=== PATIENT | male | born 1940 | race Caucasian/White ===

== ENCOUNTER 2018-04-04 09:57 | Day surgery (SDC) | payer OTHER ==
[2018-04-04] MEDS ORDERED: fentaNYL* 50 MCG/ML 2 ML VIAL (100 MCG VIAL) ONE (11:24)
[2018-04-04] MEDS ORDERED: Midazolam* 1 MG/ML 2 ML VIAL (2 MG) ONE (11:24)
[2018-04-04 13:19] VITALS: BP 120/82
[2018-04-04] MEDS ORDERED: Phenylephr/Ketorolac 1%/0.3% OPH DROP BTL ONE (14:11)
--- NOTE | 2018-04-04 14:29 | OP ---
DATE OF OPERATION/DATE OF DICTATION: 04/04/2018 - [facility] DATE OF : 1940. SURGEON: Dr. Parish Chino. PLANER SETUP OPERATOR: None. ANESTHESIA: Topical with intravenous sedation. PRE-OP DIAGNOSIS: Cataract, left eye. POST-OP DIAGNOSIS: Cataract, left eye. OPERATIVE PROCEDURE: Phacoemulsification and cataract extraction with posterior chamber intraocular lens implant, left eye. COMPLICATIONS: None. BLOOD LOSS: None. DESCRIPTION OF PROCEDURE: The patient was brought to the operating room and received a small amount of intravenous sedation. A drop of Tetracaine was placed in his left eye. He was prepped and draped in the usual sterile fashion for ophthalmic surgery and attention was directed to the left eye where a speculum was placed. A paracentesis was created at the 5 o'clock position and 0.1 cc of 1 percent preservative-free Lidocaine was injected into the anterior chamber followed by DisCoVisc. The eye was digitally stabilized while a 2.75 mm keratome was used to create a triplanar clear corneal incision at the 3 o' clock position. A continuous curvilinear capsulorrhexis was created with a cystotome and Utrata forceps. BSS on a cannula was used to hydrodissect the lens from the capsule. Phacoemulsification was performed in a divide-and- conquer technique to create four fragments which were removed. Residual cortical material was removed with irrigation and aspiration. DisCoVisc was used to inflate the capsular bag and an AUOOTO 21.0 diopter lens was folded and inserted into the capsular bag. DisCoVisc was removed using irrigation and aspiration. BSS on a cannula was used to hydrate the corneal stroma and seal the wound. At the end of the case the pupil was round and the lens was centered. The eye was of normal pressure and the wound was water tight. The speculum was removed and topical Maxitrol ointment was placed on the surface of the eye. The eye was closed, patched and shielded and the patient was sent to the recovery room in stable condition with post operative instructions and follow-up appointment given. [id number] #: [id number] MTDD
== END 2018-04-04 13:10 | disposition home or self-care (01) ==
LOC: OREAST 09:57
PROVIDERS: ATTEND Ophthalmology
DX: H25.12 Age-related nuclear cataract, left eye (principal); I25.10 Atherosclerotic heart disease of native coronary artery without angina pectoris; I25.2 Old myocardial infarction; Z86.718 Personal history of other venous thrombosis and embolism; Z79.01 Long term (current) use of anticoagulants; E03.9 Hypothyroidism, unspecified; F41.8 Other specified anxiety disorders; J44.9 Chronic obstructive pulmonary disease, unspecified; Z99.81 Dependence on supplemental oxygen
CPT/HCPCS: C9447; J2250; J3010; V2632

== ENCOUNTER 2018-04-11 09:21 | Day surgery (SDC) | payer OTHER ==
[~2018-04-11 09:21] MED LIST: Acetaminophen TAB* 325 MG PO PRN; Buffered Lidocaine 0.9% SYRIN* 5 ML/SYR SYRINGE INTRADERM ONE
[2018-04-11] MEDS ORDERED: Midazolam* 1 MG/ML 2 ML VIAL (2 MG) ONE (10:12)
[2018-04-11] MEDS ORDERED: Propofol* 10 MG/ML 20 ML BTL IV PUSH ONE (10:31)
[2018-04-11] MEDS ORDERED: Lidocaine 2% PF * 5 ML VIAL ONE (10:31)
[2018-04-11 11:01] VITALS: BP 103/74
[2018-04-11] MEDS ORDERED: Tetracaine 0.5% OPTH.SOL 4 ML* 1 DROP BTL ONE (13:47)
[2018-04-11] MEDS ORDERED: Ketorolac 0.5% OPHTH (NF) 0.5 % 5 ML BTL ONE (13:47)
[2018-04-11] MEDS ORDERED: Neomycin/Polymy/Dex OPHTH.OIN* 3.5 GM ONE (13:47)
[2018-04-11] MEDS ORDERED: Cyclopentolate 1% OPTH.SOL* 2 ML BTL ONE (13:47)
[2018-04-11] MEDS ORDERED: Tropicamide 1% OPTH.SOL* BTL ONE (13:47)
[2018-04-11] MEDS ORDERED: Phenylephrine 2.5% OPTH.SOL* 2 ML BTL ONE (13:47)
[2018-04-11] MEDS ORDERED: Phenylephr/Ketorolac 1%/0.3% OPH DROP BTL ONE (13:47)
[2018-04-11] MEDS ORDERED: Lidocaine 1%* 5 ML VIAL ONE (13:47)
--- NOTE | 2018-04-12 03:24 | OP ---
DATE OF OPERATION: 04/11/18 [facility] DATE OF : 44 SURGEON: Dr. Parish Chino. FAMILY SERVICES WORKER: None. ANESTHESIA: Topical with intravenous sedation. PRE-OP DIAGNOSIS: Cataract, right eye. POST-OP DIAGNOSIS: Cataract, right eye. OPERATIVE PROCEDURE: Phacoemulsification and cataract extraction with posterior chamber intraocular lens implant, right eye. COMPLICATIONS: None. BLOOD LOSS: None. DESCRIPTION OF PROCEDURE: The patient was brought to the operating room and received a small amount of intravenous sedation. A drop of Tetracaine was placed in his right eye. He was prepped and draped in the usual sterile fashion for ophthalmic surgery and attention was directed to the right eye where a speculum was placed. A paracentesis was created at the 11 o'clock position and 0.1 cc of 1 percent preservative-free Lidocaine was injected into the anterior chamber followed by DisCoVisc. The eye was digitally stabilized while a 2.75 mm keratome was used to create a triplanar clear corneal incision at the 9 o'clock position. A continuous curvilinear capsulorrhexis was created with a cystotome and Utrata forceps. BSS on a cannula was used to hydrodissect the lens from the capsule. Phacoemulsification was performed in a divide-and- conquer technique to create four fragments which were removed. Residual cortical material was removed with irrigation and aspiration. DisCoVisc was used to inflate the capsular bag and an [id number] 21.5 diopter lens was folded and inserted into the capsular bag. DisCoVisc was removed using irrigation and aspiration. BSS on a cannula was used to hydrate the corneal stroma and seal the wound. At the end of the case the pupil was round and the lens was centered. The eye was of normal pressure and the wound was water tight. The speculum was removed and topical Maxitrol ointment was placed on the surface of the eye. The eye was closed, patched and shielded and the patient was sent to the recovery room in stable condition with post operative instructions and followup appointment given. [id number]/CPS #: [id number]
== END 2018-04-11 11:10 | disposition home or self-care (01) ==
LOC: OREAST 09:21
PROVIDERS: ATTEND Ophthalmology
DX: H25.11 Age-related nuclear cataract, right eye (principal); I25.10 Atherosclerotic heart disease of native coronary artery without angina pectoris; I25.2 Old myocardial infarction; I34.0 Nonrheumatic mitral (valve) insufficiency; J44.9 Chronic obstructive pulmonary disease, unspecified; E03.9 Hypothyroidism, unspecified; G47.33 Obstructive sleep apnea (adult) (pediatric); Z99.81 Dependence on supplemental oxygen; Z79.01 Long term (current) use of anticoagulants
CPT/HCPCS: A9270-GY; C9447; J2250; J2704; V2632

== ENCOUNTER 2018-09-07 10:39 | Emergency (ER) | payer OTHER ==
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
[2018-09-07 11:37] LABS: ABS Basophils 0.1 10^3/ul (0-0.2); ABS Eosinophils 0.1 10^3/ul (0-0.6); ABS Lymphocytes 2.1 10^3/ul (1.0-4.8); ABS Monocytes 0.8 10^3/ul (0-0.8); ABS Neutrophils 3.6 10^3/ul (1.5-7.7); ABS Nucleated RBC 0 10^3/ul; Eosinophil % 2.1 %; Hematocrit 43 % (42-52); Hemoglobin 14.9 g/dl (14.0-18.0); Lymphocyte % 30.9 %; Mean Corpuscular HGB Conc 35 g/dl (31-36); Mean Corpuscular Hemoglobin 34 pg (27-31); Mean Corpuscular Volume 97 fL (80-94); Mean Platelet Volume 6.8 fL (7.4-10.4); Nucleated Red Blood Cells % 0; Platelet Count 282 10^3/ul (150-450); Red Blood Count 4.44 10^6/ul (4.00-5.40); Red Cell Distribution Width 13 % (10.5-15); White Blood Count 6.6 10^3/ul (3.5-10.8)
[2018-09-07 12:04] LABS: Albumin 4.1 g/dL (3.2-5.2); Albumin/Globulin Ratio 1.6 (1-3); BUN/Creatinine Ratio 16.5 (8-20); Calcium 9.1 mg/dL (8.6-10.3); EGFR Non-African American 75.2 (>60); Globulin 2.5 g/dL (2-4); Total Bilirubin 0.7 mg/dL (0.2-1.0); Total Protein 6.6 g/dL (6.4-8.9)
[2018-09-07 12:12] LABS: Activated Partial Thrombo Time 59.1 seconds (26.0-36.3); INR 3.96 (0.77-1.02)
[2018-09-07 13:06] VITALS: BP 124/87
== END 2018-09-07 13:05 | disposition home or self-care (01) ==
LOC: ED 10:39
DX: R25.2 Cramp and spasm (principal); M79.662 Pain in left lower leg; R79.1 Abnormal coagulation profile; J44.9 Chronic obstructive pulmonary disease, unspecified; Z87.891 Personal history of nicotine dependence; F41.9 Anxiety disorder, unspecified; F32.9 Major depressive disorder, single episode, unspecified
CPT/HCPCS: 36415; 80053; 85025; 85610; 85730; 99282

== ENCOUNTER 2019-08-05 03:38 | Emergency (ER) | payer OTHER ==
--- OUTSIDE RECORDS SUMMARY | 2019-08-05 03:52 | XMS REPORT | Summary of Care ---
:1940 Author Organization [facility] Address [address] [address] Care Team Providers Name Role Phone Raymon Cortez MD Primary Care Provider Reason for Visit Reason Comments Surgical Followup CTR right hand 07/03/19 Encounter Details Date Type Department Care Team Description 07/19/2019 Office Visit [facility] - Nahid Lovelace, Carpal tunnel Re SEALS syndrome, unspecified [address] laterality ([address]) [place] [address] [place], [place] [phone] Allergies Active Allergy Reactions Severity Noted Date Comments Sulfamethoxazole W/Trimethoprim Swelling 11/25/2017 Beclomethasone Unknown Reaction 11/25/2017 Buspirone Unknown Reaction 11/25/2017 Ciclesonide Unknown Reaction 11/25/2017 Ciprofloxacin Hcl Unknown Reaction 11/25/2017 Citalopram Unknown Reaction 11/25/2017 Colestipol Unknown Reaction 11/25/2017 Combivent Unknown Reaction 11/25/2017 Doxycycline Unknown Reaction 11/25/2017 Fluoxetine Unknown Reaction 11/25/2017 Fondaparinux Unknown Reaction 11/25/2017 Hydrocodone GI Reaction 07/19/2019 Hydroxyzine Unknown Reaction 11/25/2017 Levothyroxine Rash 11/25/2017 Lovastatin Unknown Reaction 11/25/2017 Methocarbamol Unknown Reaction 11/25/2017 Mirtazapine Unknown Reaction 11/25/2017 Mometasone Unknown Reaction 11/25/2017 Pravastatin Unknown Reaction 11/25/2017 Simvastatin GI Reaction 11/25/2017 Budesonide-Formoterol Fumarate Unknown Reaction 11/25/2017 Tiotropium Unknown Reaction 11/25/2017 Tramadol GI Reaction 07/19/2019 documented as of this encounter (statuses as of 07/19/2019) Medications Medication Sig Dispensed Refills Start End Date Status Date albuterol Take 2 Puffs 0 Active (PROVENTIL,VENTOLIN) by inhalation 90 mcg/act FOUR TIMES DAILY. Levothyroxine Sodium Take by 0 Active 25 MCG Oral Cap mouth. olodaterol Take 2 INHL by 0 Active (STRIVERDI) 2.5 inhalation MCG/ACT Inhalation DAILY. Aero Soln OMEPRAZOLE PO Take 20 mg by 0 Active mouth. warfarin (COUMADIN) Take 2.5 mg by 0 Active 2.5 MG Oral Tab mouth DAILY. Acetaminophen 500 MG Take 500 mg by 0 Active Oral Cap mouth. cholecalciferol Take 400 Units 0 Active (VITAMIN D) 400 UNIT by mouth Oral Tab DAILY. Multiple Vitamin Take by 0 Active (MULTIVITAMINS PO) mouth. clotrimazole-betamet 1 Each by 15 g 0 Active hasone (LOTRISONE) Topical route 8 1-0.05 % Apply TWICE DAILY. externally Cream methylPREDNISolone, Take 1 Tab by 1 Each 0 Active dose-geremias, (MEDROL) 4 mouth 9 MG Oral Tablet DIRECTED for 1 Therapy Pack dose. Please ignore dose field amoxicillin (AMOXIL, Take 500 mg by 0 Active POLYMOX, TRIMOX) 500 mouth THREE MG Oral Cap TIMES DAILY. HYDROcodone-acetamin Take 1 Tab by 15 Tab 0 07/19/20 Discontinued ophen (NORCO) 5-325 mouth EVERY 9 19 (Adverse Drug MG Oral SIX HOURS Reaction) TabIndications: NEEDED (pain) Acute post-operative for up to 15 pain doses. Max Daily Amount: 4 Tabs. tramadol (ULTRAM) 50 Take 1 Tab by 20 Tab 0 07/19/20 Discontinued MG Oral Tab mouth EVERY 9 19 (Adverse Drug SIX HOURS Reaction) NEEDED (pain) for up to 20 days. Max Daily Amount: 200 mg. documented as of this encounter (statuses as of 07/19/2019) Active Problems Problem Noted Date group home (current) use of anticoagulants 07/06/2019 Overview: Patient is managed by PCP Right carpal tunnel syndrome 05/31/2019 Overview: Added automatically from request for surgery [id number] Carpal tunnel syndrome of right wrist 11/25/2017 documented as of this encounter (statuses as of 07/19/2019) Social History Tobacco Use Types Packs/Day Years Used Date Former Smoker 0 Quit: 1999 Smokeless Tobacco: Never Used Alcohol Use Drinks/Week oz/Week Comments No Sex Assigned at Date Recorded Not on file Job Start Date Occupation Industry Not on file Not on file Not on file Travel History Travel Start Travel End No recent travel history available. documented as of this encounter Last Filed Vital Signs Vital Sign Reading Time Taken Comments Blood Pressure - - Pulse - - Temperature - - Respiratory Rate - - Oxygen Saturation - - Inhaled Oxygen Concentration - - Weight 93 kg (205 lb) 07/19/2019 12:59 PM EST Height 177.8 cm (5' 10") 07/19/2019 12:59 PM EST Body Mass Index 29.41 07/19/2019 12:59 PM EST documented in this encounter Progress Notes Nahid Lovelace MD - 07/19/2019 1:00 PM EST Name: Hany Roberto : 1940 Date of service: 07/19/2019 Chief Complaint Patient presents with Surgical Followup CTR right hand 07/03/19 HPI: Hany Roberto is a 79-y.o. y/o male, who presents at the request of Nahid Lovelace for evaluation. 2 weeks postop. No complaints PAST MEDICAL HISTORY: He has a past medical history of Appendix abscess, Asthma , COPD (chronic obstructive pulmonary disease) (), DVT (deep venous thrombosis) (), Irregular heart beat, Irregularheartbeat (2018), PVD ( peripheral vascular disease) ([facility]), and Rib fracture. PAST SURGICAL HISTORY: He has a past surgical history that includes pr appendectomy and release carpal tunnel (Right, 07/03/2019). MEDICATIONS: Current Outpatient Medications: Acetaminophen 500 MG Oral Cap, Take 500 mg by mouth., Disp: , Rfl: albuterol (PROVENTIL,VENTOLIN) 90 mcg/act, Take 2 Puffs by inhalation FOUR TIMES DAILY., Disp: , Rfl: amoxicillin (AMOXIL, POLYMOX, TRIMOX) 500 MG Oral Cap, Take 500 mg by mouth THREE TIMES DAILY., Disp: , Rfl: cholecalciferol (VITAMIN D) 400 UNIT Oral Tab, Take 400 Units by mouth DAILY., Disp: , Rfl: clotrimazole-betamethasone (LOTRISONE) 1-0.05 % Apply externally Cream, 1 Each by Topical route TWICE DAILY., Disp: 15 g, Rfl: 0 Levothyroxine Sodium 25 MCG Oral Cap, Take by mouth., Disp: , Rfl: methylPREDNISolone, dose-geremias, (MEDROL) 4 MG Oral Tablet Therapy Pack, Take 1 Tab by mouth ASDIRECTED for 1 dose. Please ignore dose field, Disp: 1 Each, Rfl: 0 Multiple Vitamin (MULTIVITAMINS PO), Take by mouth., Disp: , Rfl: olodaterol (STRIVERDI) 2.5 MCG/ACT Inhalation Aero Soln, Take 2 INHL by inhalation DAILY., Disp: , Rfl: OMEPRAZOLE PO, Take 20 mg by mouth., Disp: , Rfl: warfarin (COUMADIN) 2.5 MG Oral Tab, Take 2.5 mg by mouth DAILY., Disp: , Rfl: ALLERGIES: He is allergic to bactrim [sulfamethoxazole w/trimethoprim]; beclomethasone; buspar [buspirone]; ciclesonide; ciprofloxacin hcl; citalopram; colestipol; combivent; doxycycline; fluoxetine; fondaparinux; hydrocodone; hydroxyzine; levothyroxine; lovastatin; methocarbamol; mirtazapine; mometasone; pravastatin; simvastatin; symbicort [budesonide-formoterol fumarate]; tiotropium ; and tramadol. SOCIAL HISTORY: He reports that he quit smoking about 19 years ago. He smoked 0.00 packs per day. He has never used smokeless tobacco. He reports that he does not drink alcohol or use drugs. FAMILY HISTORY: family history includes Cancer in his mother and sister; Diabetes in his mother; Heart Disease in his brother. ROS: Nursing Notes: Zhane Dinero LPN 07/19/2019 1:02 PM Signed PATIENT: Hany Roberto : 1940 DATE OF SERVICE: 07/19/2019 Chief Complaint Patient presents with Surgical Followup CTR right hand 07/03/19 Ht 5' 10" (1.778 m) | Wt 205 lb (93 kg) | BMI 29.41 kg/m CONSTITUTIONAL: negative. HEENT: negative. EYES: negative. RESPIRATORY: negative. CARDIOVASCULAR: negative. GASTROINTESTINAL: negative. GENITOURINARY: negative. INTEGUMENT/BREAST: negative. HEMATOLOGIC/LYMPHATIC: negative. MUSCULOSKELETAL: Negative except right hand. NEUROLOGICAL: negative. BEHAVIORAL/PSYCH: negative. ENDOCRINE: Negative. ALLERGIC/IMMUNOLOGIC: Negative. Body mass index is 29.41 kg/m. AUTHOR: Zhane Dinero LPN 07/19/2019 13:02 I reviewed the above and have made changes as appropriate. Physical Exam: Vitals: Ht 5' 10" (1.778 m) Wt 205 lb (93 kg) BMI 29.41 kg/m2 Gen: NAD, A&Ox3 SKIN/PALPATION: Normal rugal patterns, sweat, turgor, and temperature. Cuticles , nails, nail curvature, and pulp bulk are essentially normal in appearance. No skin changes. SWELLING: none WARMTH: no warmth DEFORMITY: no gross deformity or malalignment NEUROLOGICAL EXAM: Sensation intact to light touch. VASCULAR EXAM: Capillary refill is <2 seconds. Surgical wound is healing well. Thumb palmar abduction is 5 out of 5. Sensation is intact Imaging & Tests: Assessment: ICD-9-CM ICD-10-CM 1. Carpal tunnel syndrome, unspecified laterality 354.0 G56.00 Status post carpal tunnel release doing well Plan & Discussion: --Return to clinic in 4 weeks No x-rays will be necessary Nahid Lovelace MD Hand Surgery 07/19/2019 documented in this encounter Plan of Treatment Date Type Specialty Care Team Description 08/16/2019 Office Visit Orthopedics Nahid Lovelace MD [address] [facility] [address] [place] [address] [phone] Health Maintenance Due Date Last Done Comments DEPRESSION SCREENING 1954 HIV SCREENING 1957 ZOSTER IMMUNIZATION SERIES (1 of 2) 02/07/1992 FALL RISK ASSESSMENT 2007 PNEUMOCOCCAL 65+YRS (1 of 2 - 2007 PCV13) INFLUENZA VACCINE (#1) 2019 HPV IMMUNIZATION SERIES Aged Out No longer eligible based on patient's age to complete this topic MENINGOCOCCAL VACCINE IMM Aged Out No longer eligible based on patient's age to complete this topic documented as of this encounter Results Not on filedocumented in this encounter Visit Diagnoses Diagnosis Carpal tunnel syndrome, unspecified laterality - Primary documented in this encounter Insurance Payer Benefit Plan / Subscriber ID Effective Phone Address Type Group Dates [employer] xxxxxxxxx 2019-Pr [facility] Administration [employer] documented as of this encounter
--- OUTSIDE RECORDS SUMMARY | 2019-08-05 03:53 | XMS REPORT | Summary of Care ---
:1940 Author Organization [facility] Address [address] [facility] [place] [address] Care Team Providers Name Role Phone Raymon Cortez MD Primary Care Provider Reason for Visit Auth/Cert Status Reason Specialty Diagnoses / Procedures Referred By Contact Referred To Contact Encounter Details Date Type Department Care Team Description 07/03/2019 Hospital Encounter [facility] Nahid Lovelace, [place] [facility] [id number] [id number] [phone] Allergies Active Allergy Reactions Severity Noted Date Comments Sulfamethoxazole W/Trimethoprim Swelling 11/25/2017 Beclomethasone Unknown Reaction 11/25/2017 Buspirone Unknown Reaction 11/25/2017 Ciclesonide Unknown Reaction 11/25/2017 Ciprofloxacin Hcl Unknown Reaction 11/25/2017 Citalopram Unknown Reaction 11/25/2017 Colestipol Unknown Reaction 11/25/2017 Combivent Unknown Reaction 11/25/2017 Doxycycline Unknown Reaction 11/25/2017 Fluoxetine Unknown Reaction 11/25/2017 Fondaparinux Unknown Reaction 11/25/2017 Hydroxyzine Unknown Reaction 11/25/2017 Levothyroxine Rash 11/25/2017 Lovastatin Unknown Reaction 11/25/2017 Methocarbamol Unknown Reaction 11/25/2017 Mirtazapine Unknown Reaction 11/25/2017 Mometasone Unknown Reaction 11/25/2017 Pravastatin Unknown Reaction 11/25/2017 Simvastatin GI Reaction 11/25/2017 Budesonide-Formoterol Fumarate Unknown Reaction 11/25/2017 Tiotropium Unknown Reaction 11/25/2017 documented as of this encounter (statuses as of 07/04/2019) Medications Medication Sig Dispensed Refills Start Date End Date Status albuterol Take 2 Puffs by 0 Active (PROVENTIL,VENTOLIN) 90 inhalation FOUR mcg/act TIMES DAILY. Levothyroxine Sodium 25 Take by mouth. 0 Active MCG Oral Cap olodaterol (STRIVERDI) Take 2 INHL by 0 Active 2.5 MCG/ACT Inhalation inhalation DAILY. Aero Soln OMEPRAZOLE PO Take 20 mg by 0 Active mouth. warfarin (COUMADIN) 2.5 Take 2.5 mg by 0 Active MG Oral Tab mouth DAILY. Acetaminophen 500 MG Take 500 mg by 0 Active Oral Cap mouth. cholecalciferol Take 400 Units by 0 Active (VITAMIN D) 400 UNIT mouth DAILY. Oral Tab Multiple Vitamin Take by mouth. 0 Active (MULTIVITAMINS PO) clotrimazole-betamethas 1 Each by Topical 15 g 0 03/16/2018 Active one (LOTRISONE) 1-0.05 route TWICE % Apply externally DAILY. Cream methylPREDNISolone, Take 1 Tab by 1 Each 0 05/09/2019 Active dose-geremias, (MEDROL) 4 MG mouth DIRECTED Oral Tablet Therapy for 1 dose. Pack Please ignore dose field amoxicillin (AMOXIL, Take 500 mg by 0 Active POLYMOX, TRIMOX) 500 MG mouth THREE TIMES Oral Cap DAILY. documented as of this encounter (statuses as of 07/04/2019) Active Problems Problem Noted Date Right carpal tunnel syndrome 05/31/2019 Overview: Added automatically from request for surgery [id number] Carpal tunnel syndrome of right wrist 11/25/2017 documented as of this encounter (statuses as of 07/04/2019) Social History Tobacco Use Types Packs/Day Years [...] Sign Reading Time Taken Comments Blood Pressure 119/66 07/03/2019 10:50 AM EDT Pulse 69 07/03/2019 10:50 AM EDT Temperature 36.2 07/03/2019 10:50 AM EDT C (97.1 F) Respiratory Rate 22 07/03/2019 10:50 AM EDT Oxygen Saturation 90% 07/03/2019 10:50 AM EDT Inhaled Oxygen Concentration - - Weight 93 kg (205 lb) 07/03/2019 9:07 AM EDT Height 177.8 cm (5' 10") 07/03/2019 9:07 AM EDT Body Mass Index 29.41 07/03/2019 9:07 AM EDT documented in this encounter Discharge Summaries Nahid Lovelace MD - 07/03/2019 10:42 AM EDTGUTHRIE SP/OP DISCHARGE NOTE [place] [address] PATIENT: Hany Roberto SURGEON: Nahid Lovelace MD : 1940 DATE OF SURGERY: 07/03/2019 Procedure: Procedure(s): RELEASE CARPAL TUNNEL Principle Diagnosis: Right carpal tunnel syndrome Associated Condition(s): Same as pre-op, unless otherwise indicated Mental Status: Same as pre-op, unless otherwise indicated. Condition: Stable, unless otherwise indicated Disposition of Care: Discharge to home. Follow-up with Dr. Lovelace in two weeks. Other Comments: n/a Author: Nahid Lovelace MD documented in this encounter Discharge Instructions Charley Scott RN - 07/03/2019Provider's Instructions 1. Diet: As before unless otherwise instructed. 2. Medications: Continue all medications unless otherwise instructed, contact primary physician if any questions. Resume coumadin as directed by your physician 3. You could have numb areas up to 24 hours, be careful with temperature until all feeling has returned to affected area. 4. As the local anesthetic wears off, you may have pain in the area, use medication prescribed. 5. Apply ice to the site today and elevate (first 24 hours) 6. Dressing: May shower, but don't get dressing wet (keep it covered). Keep dressing on for three days then remove and apply band aid. Stitches will be removed at follow up appointment. 7. Pain Medications: Tylenol or Ibuprofen as needed. 8. What You need to know following Sedation/Anesthesia: ? Call 911 or have someone else call if you have trouble breathing or cannot be woken. ? Go to emergency department if you have any concerns and cannot reach physician ? Contact your healthcare provider if you have chills or fever, skin is itchy, swollen ir you have shannon, nausea/vomiting for more than 8 hours after procedure , and any questions or concerns about your condition or care. 9. Self-care: ? Have someone stay with you for 24 hours (unless you had local anesthesia) ? Rest and do quiet activities for 24 hours ? Drink liquids as directed (start with clear liquids as juice/broth, if tolerated go to regular diet) Other instructions: Follow up appointment with surgeon: , July 19 at 1pm Reason for Admission or Diagnosis:Right carpal tunnel syndrome Discharge Provider: Nahid Lovelace MD Attending: Nahid Lovelace MD Time: 10:42 If any problems occur, please contact your doctor immediately. If you can not reach your doctor, but feel that your symptoms warrant a doctor's attention, go to the emergency room that is closest to you. It is your responsibility to follow your doctor's instructions including those above. Nurse's Instructions Problems to report to your Physician: Excessive pain or discomfort Fever > 100.5 degrees Difficulty breathing Increase or smell in wound drainage *Please Return Patient Satisfaction Survey* documented in this encounter Plan of Treatment Date Type Specialty Care Team Description 07/19/2019 Office Visit Orthopedics Nahid Lovelace MD [address] [place] [address] [phone] Health Maintenance Due Date Last Done Comments [...] this topic documented as of this encounter Procedures Procedure Name Priority Date/Time Associated Diagnosis Comments RELEASE CARPAL Planned Trip to OR 07/03/2019 11:01 AM Right carpal tunnel TUNNEL EDT syndrome Special Needs PAT completed with patient over the phone. Health and medication history reviewed. NPO status reviewed. Pt verbalizes understanding of instructions provided. 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 Pt will like to kn ow his arrival time sooner than the day before to be able to coordinate things. Advised patient that cashier receptionist will call day before with arrival time. Pt denies any questions or concerns at this time but if any arise will call [facility] back. documented in this encounter Results Not on filedocumented in this encounter Visit Diagnoses Diagnosis Right carpal tunnel syndrome Carpal tunnel syndrome documented in this encounter Administered Medications Medication Order MAR Action Action Date Dose Rate Site dextrose 5% and lactated ringers IV Intravenous, at 100 mL/hr, CONTINUOUS, Starting Tue07/03/19 at 0910, Until Tue07/03/19 at 1331 lactated ringers IV Intravenous, at 75 mL/hr, CONTINUOUS, Starting Tue07/03/19 at 1040, Until Tue07/03/19 at 1331 documented in this encounter Insurance Payer Benefit Plan / Subscriber ID Effective Phone Address Type Group Dates [facility] xxxxxxxxx 2019-Pr [facility] Administration [employer] documented as of this encounter
[2019-08-05] MEDS ORDERED: Ketorolac INJ* 30 MG/ML 1 ML VIAL IM ONE (04:53)
--- NOTE | 2019-08-05 04:54 | ED ---
Throat Pain/Nasal Congestion - HPI Summary HPI Summary: This patient is a 65 year old M presenting to [facility] with a chief complaint of terrible sore throat since night of 08/04/19. Pt had been on antibiotics for 5 days until 08/01/19. Patient reports sore throat, abdominal pain, fever, cough ( painful) chills, issues swallowing due to pain, and diarrhea. Patient denies nausea and vomiting. - History of Current Complaint Chief Complaint: EDThroatPain Time Seen by Provider: 08/05/19 04:47 Hx Obtained From: Patient Onset/Duration: Gradual Onset, Still Present Severity: Severe Associated Signs And Symptoms: Positive: Negative Cough: Nonproductive - Allergies/Home Medications Allergies/Adverse Reactions: Allergies Allergy/AdvReac Type Severity Reaction Status Date / Time MS Citalopram [Citalopram] Allergy Severe Hallucinati Verified 09/07/18 10:51 ons budesonide [From Symbicort] Allergy Intermediate THROAT Verified 09/07/18 10:51 SWELLING, SORE THROAT formoterol [From Symbicort] Allergy Intermediate THROAT Verified 09/07/18 10:51 SWELLING, SORE THROAT MS Cyclobenzaprine Allergy Intermediate See Comment Verified 09/07/18 10:51 [From Flexeril] MS Sulfamethoxazole Allergy Intermediate Rash Verified 09/07/18 10:51 w/Trimethoprim [From Bactrim] MS Oxycodone [Oxycodone] Allergy Mild See Comment Verified 09/07/18 10:51 hydrocodone Allergy Rash Verified 08/05/19 03:40 mycins Allergy Severe Swelling Uncoded 09/07/18 10:51 Of Face,Lips,& Throat Home Medications: Home Medications Zithromax TAB (Z-MARIA DE JESUS) 250 mg #6 tabs 1 tab PO DAILY 08/05/19 [History Confirmed 08/05/19] PMH/Surg Hx/FS Hx/Imm Hx Endocrine/Hematology History: Reports: Hx Thyroid Disease - HYPOTHYROID Denies: Hx Bone Marrow Disease, Hx Diabetes, Hx Sickle Cell Disease, Hx Anemia Cardiovascular History: Reports: Hx Deep Vein Thrombosis, Hx Hypertension, Hx Peripheral Vascular Disease, Other Cardiovascular Problems/Disorders - DVT LEFT LEG X 2, LAST 5 YRS AGO, ON W[place] Denies: Hx Congestive Heart Failure Respiratory History: Reports: Hx Chronic Obstructive Pulmonary Disease (COPD), Hx Sleep Apnea - DX 2 YRS AGO, HAS CPAP BUT CAN'T TOLERATE IT, Other Respiratory Problems/Disorders GI History: Reports: Hx Gastroesophageal Reflux Disease, Hx Hiatal Hernia - MILD History: Reports: Other Problems/Disorders - ENLARGED PROSTATE Musculoskeletal History: Reports: Hx Arthritis - MILD IN KNEES, Hx Tendonitis - HX OF- RIGHT SHOULDER, Other Musculoskeletal History - PLANTAR FASCIITIS- CORTISONE INJ IN FEET, OK NOW Denies: Hx Bursitis Sensory History: Reports: Hx Cataracts - BILAT, Hx Contacts or Glasses - GLASSES Denies: Hx Glaucoma, Hx Hearing Aid Opthamlomology History: Reports: Hx Cataracts - BILAT, Hx Contacts or Glasses - GLASSES Denies: Hx Glaucoma Neurological History: Reports: Other Neuro Impairments/Disorders - RIGHT CTS Psychiatric History: Reports: Hx Anxiety - MILD, Hx Depression - MILD - Surgical History Surgery Procedure, Year, and Place: APPENDECTOMY [place]. TEETH EXTRACTED IN DENTAL OFFICE Hx Anesthesia Reactions: Yes - STATES HE DOESN'T REQUIRE A LOT OF SEDATION - Immunization History Date of Tetanus Vaccine: unknown Date of Influenza Vaccine: Jun 2018 Infectious Disease History: Yes Infectious Disease History: Reports: Hx Hepatitis - HX ? HEP B ? UNSURE, OK NOW Denies: Traveled Outside the [place] in Last 30 Days - Family History Known Family History: Positive: Cardiac Disease - brothers and father, Diabetes , Other - cancer: mother, sister - Social History Alcohol Use: Rare Alcohol Amount: 1 DRINK ON HOLIDAYS Substance Use Type: Reports: None Smoking Status (MU): Former Smoker Type: Cigarettes Amount Used/How Often: 1 PPD FOR 35 YRS Length of Time of Smoking/Using Tobacco: 35 YRS Have You Smoked in the Last Year: No - Additional Comments History Additional Comments: Home Medications Medication Instructions Recorded Confirmed Type Albuterol HFA INHALER* [Proair Hfa 1 puff INH QID PRN 07/09/13 08/05/19 History Inhaler*] Warfarin TAB(*) [Coumadin TAB(*)] 5 mg PO SEE INSTRUCTIONS 07/09/13 08/05/19 History Cetirizine* [ZyrTEC 10 MG TAB*] 10 mg PO DAILY PRN 03/21/18 08/05/19 History Levothyroxine TAB* [Synthroid TAB*] 12.5 mcg PO 0800 03/21/18 08/05/19 History Multivitamin [Men's Multi-Vitamin] 1 each PO QAM 03/21/18 08/05/19 History Omeprazole CAP (NF) [Prilosec CAP* 20 mg PO QAM PRN 03/21/18 08/05/19 History 20 MG] Olodaterol Inhaler* [Striverdi 1 puff INH QAM 04/04/18 08/05/19 History Respimat (NF)] Zithromax TAB (Z-MARIA DE JESUS) 250 mg #6 1 tab PO DAILY 08/05/19 08/05/19 History tabs Review of Systems Positive: Fever, Chills Positive: Sore Throat Positive: Abdominal Pain, Diarrhea. Negative: Vomiting, Nausea All Other Systems Reviewed And Are Negative: Yes Physical Exam - Summary Physical Exam Summary: General: Well-developed, Well-nourished Elderly male, appears in mild discomfort. HEENT: Normocephalic, Atraumatic. Eyes: Conjuctiva normal, PERRL. Ears: TMs within normal limits. Nares: (-) discharge, (-) erythema. Oropharynx: slightly erythematous, no significant swelling, uvula normal midline Neck: Soft, FROM, (-) lymphadenopathy, (-) thyromegaly, (-) JVD. Cardiovascular: Normal sinus rhythm, (-) murmur. Lungs: Clear to auscultation bilaterally (-) wheezes, (-) rales, (-) rhonchi. Abdomen: Soft, non-tender, non-distended, (-) organomegaly, normal bowel sounds. Back: (-) CVA tenderness Extremities: No edema. Skin: Warm, dry, (-) rash. Neuro: Alert and oriented x3, no focal deficits. Psychiatric: Mood normal, affect normal. Triage Information Reviewed: Yes Vital Signs On Initial Exam: Initial Vitals Temp Pulse Resp BP Pulse Ox 101.4 F 124 18 166/98 92 08/05/19 03:40 08/05/19 03:40 08/05/19 03:40 08/05/19 03:40 08/05/19 03:40 Vital Signs Reviewed: Yes Procedures - Sedation Patient Received Moderate/Deep Sedation with Procedure: No Diagnostics - Vital Signs Vital Signs Temp Pulse Resp BP Pulse Ox 08/05/19 04:44 101.5 F 08/05/19 04:43 101 154/101 92 08/05/19 03:40 101.4 F 124 18 166/98 92 - Laboratory Result Diagrams: 08/05/19 05:19 08/05/19 05:19 Lab Statement: Any lab studies that have been ordered have been reviewed, and results considered in the medical decision making process. Re-Evaluation - Re-Evaluation First Eval Re-Evaluation Time: 06:25 Comment: Discussed results and plan of care with pt. EENT Course/Dx - Course Course Of Treatment: 79 year old m present from home with severe throat pain, and productive cough. Mild fever. Pt has had two days of Z- maria de jesus, no relief with Tylenol. Pt febrile 101.5 F. Negative flu, negative strep throat. Symptoms improved with Toradol, fever came down pt discharged home. Continue Z-maria de jesus, Tylenol, ibuprofen. Follow up with PCP. - Diagnoses Provider Diagnoses: Viral URI Discharge ED - Sign-Out/Discharge Documenting (check all that apply): Patient Departure - Discharge - Discharge Plan Condition: Stable Disposition: HOME Referrals: Jessica Dumont [Primary Care Provider] - 3 Days Additional Instructions: Please follow up with your primary care physician within three days. Please return to ED for any new or worsening symptoms. - Billing Disposition and Condition Condition: STABLE Disposition: Home - Attestation Statements Document Initiated by Mahesh: Yes Documenting Scribe: Marta Long Provider For Whom Mahesh is Documenting (Include Credential): Dr. Kindra Jacome MD Scribe Attestation: Marta Humphries scribed for Dr. Kindra Jacome MD on 08/05/19 at 0633. Scribe Documentation Reviewed: Yes Provider Attestation: The documentation as recorded by the Marta valdez accurately reflects the service I personally performed and the decisions made by me, Dr. Kindra Jacome MD Status of Scribe Document: Viewed
[2019-08-05 05:26] LABS: ABS Basophils 0.1 10^3/ul (0-0.2); ABS Eosinophils 0.1 10^3/ul (0-0.6); ABS Lymphocytes 1.2 10^3/ul (1.0-4.8); ABS Monocytes 1.3 10^3/ul (0-0.8); ABS Neutrophils 7.1 10^3/ul (1.5-7.7); Eosinophil % 1.2 %; Hematocrit 42 % (42-52); Hemoglobin 14.8 g/dL (14.0-18.0); Lymphocyte % 12.6 %; Mean Corpuscular HGB Conc 35 g/dL (31-36); Mean Corpuscular Hemoglobin 34 pg (27-31); Mean Corpuscular Volume 96 fL (80-94); Mean Platelet Volume 6.7 fL (7.4-10.4); Platelet Count 242 10^3/uL (150-450); Red Blood Count 4.39 10^6 /uL (4.18-5.48); Red Cell Distribution Width 13 % (10-15); White Blood Count 9.8 10^3/uL (3.5-10.8)
[2019-08-05 05:44] LABS: Rapid Strep Molecular Negative (Negative)
[2019-08-05 05:47] LABS: Albumin 4.3 g/dL (3.2-5.2); Calcium 9.1 mg/dL (8.6-10.3); Potassium 4.1 mmol/L (3.5-5.0)
[2019-08-05 05:49] LABS: Influenza A Molecular NEGATIVE (Negative); Influenza B Molecular NEGATIVE (Negative)
[2019-08-05 05:52] LABS: Albumin/Globulin Ratio 1.5 (1-3); BUN/Creatinine Ratio 13.7 (8-20); EGFR Non-African American 76.9 (>60); Globulin 2.8 g/dL (2-4); Total Protein 7.1 g/dL (6.4-8.9)
[2019-08-05] MEDS ORDERED: Ibuprofen TAB* 400 MG PO ONE (06:25)
[2019-08-05 06:43] VITALS: BP 150/90
== END 2019-08-05 06:43 | disposition home or self-care (01) ==
LOC: ED 03:38
DX: J02.9 Acute pharyngitis, unspecified (principal); R59.0 Localized enlarged lymph nodes; J06.9 Acute upper respiratory infection, unspecified
CPT/HCPCS: 36415; 80053; 83605; 85025; 87651; 96372; 99282; A9270-GY; J1885

== ENCOUNTER 2019-08-22 12:34 | Emergency (ER) | payer OTHER ==
--- OUTSIDE RECORDS SUMMARY | 2019-08-22 12:51 | XMS REPORT | Summary of Care ---
:1940 Author Organization [facility] Address [address] [address] Care Team Providers Name Role Phone Raymon Cortez MD Primary Care Provider Reason for Visit Reason Comments Follow Up CTR right hand 07/03/19 Encounter Details Date Type Department Care Team Description 08/16/2019 Office Visit [facility] - Nahid Lovelace, Carpal tunnel Re SEALS syndrome, unspecified [address] ([address] [place] [address] [place], [place] [phone] [address] Allergies Active Allergy Reactions Severity Noted [...] as of this encounter (statuses as of 08/16/2019) Medications Medication Sig Dispensed Refills Start Date [...] as of this encounter (statuses as of 08/16/2019) Active Problems Problem Noted Date adjunct faculty for medical terminology (current) use of anticoagulants 07/06/2019 Overview: Patient is managed by PCP Right carpal tunnel syndrome 05/31/2019 Overview: Added automatically from request for surgery [id number] Carpal tunnel syndrome of right wrist 11/25/2017 documented as of this encounter (statuses as of 08/16/2019) Social History Tobacco Use Types Packs/Day Years [...] - - Weight 93 kg (205 lb) 08/16/2019 1:09 PM EST Height 177.8 cm (5' 10") 08/16/2019 1:09 PM EST Body Mass Index 29.41 08/16/2019 1:09 PM EST documented in this encounter Progress Notes Nahid Lovelace MD - 08/16/2019 1:00 PM EST Name: Hany Roberto : 1940 Date of service: 08/16/2019 Chief Complaint Patient presents with Follow Up CTR right hand 07/03/19 HPI: Hany Roberto is a 79-y.o. y/o male, who presents at the request of Nahid Lovelace for evaluation. Patient continues to have some paresthesias. He has normal range of motion PAST MEDICAL HISTORY: He has a past medical history of Appendix abscess, Asthma , COPD (chronic obstructive pulmonary disease) (), DVT (deep venous thrombosis) ([facility]), Irregular heart beat, Irregularheartbeat (2019), PVD ( peripheral vascular disease) ([facility]), and Rib fracture. PAST SURGICAL HISTORY: He [...] brother. ROS: Nursing Notes: Zhane Dinero LPN 08/16/2019 1:11 PM Signed PATIENT: Hany Roberto : 1940 DATE OF SERVICE: 08/16/2019 Chief Complaint Patient presents with Follow Up CTR right hand 07/03/19 Ht 5' 10" (1.778 m) | Wt 205 lb (93 kg) | BMI 29.41 kg/m CONSTITUTIONAL: negative. HEENT: negative. EYES: negative. RESPIRATORY: negative. CARDIOVASCULAR: negative. GASTROINTESTINAL: negative. GENITOURINARY: negative. INTEGUMENT/BREAST: negative. HEMATOLOGIC/LYMPHATIC: negative. MUSCULOSKELETAL: Negative except right hand. NEUROLOGICAL: negative. BEHAVIORAL/PSYCH: negative. ENDOCRINE: Negative. ALLERGIC/IMMUNOLOGIC: Negative. Body mass index is 29.41 kg/m. AUTHOR: Zhane Dinero LPN 08/16/2019 13:11 I reviewed the above and have made [...] VASCULAR EXAM: Capillary refill is <2 seconds. Scar is fully healed range of motion is normal. Sensation to light touch is intact throughout the hand. Palmar abduction is 5 out of 5 Imaging & Tests: Assessment: No diagnosis found. Status post carpal tunne release. Plan & Discussion: --I will see the patient back for likely final check in 8 weeks time Nahid Lovelace MD Hand Surgery 08/16/2019 documented in this encounter Plan of Treatment Date Type Specialty Care Team Description 10/11/2019 Office Visit Orthopedics Nahid Lovelace MD [address] [place] [address] [phone] Health Maintenance Due Date Last Done Comments [...] Type Group Dates [facility] xxxxxxxxx [facility] Administration [employer] documented as of this encounter
[2019-08-22 17:28] LABS: ABS Basophils 0.1 10^3/ul (0-0.2); ABS Eosinophils 0.1 10^3/ul (0-0.6); ABS Lymphocytes 2.1 10^3/ul (1.0-4.8); ABS Monocytes 0.7 10^3/ul (0-0.8); Eosinophil % 1.5 %; Hematocrit 41 % (42-52); Hemoglobin 14.3 g/dL (14.0-18.0); Lymphocyte % 25.9 %; Mean Corpuscular HGB Conc 35 g/dL (31-36); Mean Corpuscular Hemoglobin 34 pg (27-31); Mean Corpuscular Volume 96 fL (80-94); Mean Platelet Volume 6.7 fL (7.4-10.4); Platelet Count 373 10^3/uL (150-450); Red Blood Count 4.24 10^6 /uL (4.18-5.48); Red Cell Distribution Width 13 % (10-15); White Blood Count 7.9 10^3/uL (3.5-10.8)
[2019-08-22 17:46] LABS: Albumin 4.2 g/dL (3.2-5.2); Albumin/Globulin Ratio 1.3 (1-3); BUN/Creatinine Ratio 16.5 (8-20); Calcium 9.3 mg/dL (8.6-10.3); EGFR African American 97.8 (>60); EGFR Non-African American 80.8 (>60); Globulin 3.3 g/dL (2-4); Total Protein 7.5 g/dL (6.4-8.9)
[2019-08-22] MEDS ORDERED: Dicyclomine CAP* 10 MG PO ONE (17:52)
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
[2019-08-22 21:13] VITALS: BP 143/97
== END 2019-08-22 21:13 | disposition home or self-care (01) ==
LOC: ED 12:34
DX: K80.80 Other cholelithiasis without obstruction (principal); J44.9 Chronic obstructive pulmonary disease, unspecified; E03.9 Hypothyroidism, unspecified; I10 Essential (primary) hypertension; K21.9 Gastro-esophageal reflux disease without esophagitis; N40.0 Benign prostatic hyperplasia without lower urinary tract symptoms; F41.9 Anxiety disorder, unspecified; F32.9 Major depressive disorder, single episode, unspecified; Z90.89 Acquired absence of other organs; Z86.718 Personal history of other venous thrombosis and embolism; Z87.891 Personal history of nicotine dependence; Z79.01 Long term (current) use of anticoagulants; Z88.1 Allergy status to other antibiotic agents; Z88.5 Allergy status to narcotic agent; Z88.2 Allergy status to sulfonamides; Z88.8 Allergy status to other drugs, medicaments and biological substances; I71.4 Abdominal aortic aneurysm, without rupture
CPT/HCPCS: 36415; 76705; 80053; 83690; 85025; 99283; A9270-GY

== ENCOUNTER 2019-10-21 12:40 | Emergency (ER) | payer OTHER ==
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
--- OUTSIDE RECORDS SUMMARY | 2019-10-21 13:23 | XMS REPORT | Summary of Care ---
:1940 Author Organization [facility] Address [address] [address] Care Team Providers Name Role Phone Raymon Cortez MD Primary Care Provider Reason for Visit Reason Comments Follow Up 3 months s/p R CTR. Patent states he has pain over the carpal tunnel and his fingers are still numb. Pain is worse while sleeping. Encounter Details Date Type Department Care Team Description 10/11/2019 Office Visit [facility] - Nahid Lovelace, Carpal tunnel Re SEALS syndrome, unspecified [address] laterality ([address] D[address]) [place], [place] [id number] [place] [address] [phone] Allergies Active Allergy Reactions Severity Noted Date [...] as of this encounter (statuses as of 10/11/2019) Medications Medication Sig Dispensed Refills Start Date [...] as of this encounter (statuses as of 10/11/2019) Active Problems Problem Noted Date middle or intermediate school principal (current) use of anticoagulants 07/06/2019 Overview: Patient is managed by PCP Right carpal tunnel syndrome 05/31/2019 Overview: Added automatically from request for surgery [id number] Carpal tunnel syndrome of right wrist 11/25/2017 documented as of this encounter (statuses as of 10/11/2019) Social History Tobacco Use Types Packs/Day Years [...] - - Weight 93 kg (205 lb) 10/11/2019 12:56 PM EST Height 177.8 cm (5' 10") 10/11/2019 12:56 PM EST Body Mass Index 29.41 10/11/2019 12:56 PM EST documented in this encounter Progress Notes Nahid Lovelace MD - 10/11/2019 1:00 PM EST Name: Hany Camp : 1940 Date of service: 10/11/2019 Chief Complaint Patient presents with Follow Up 3 months s/p R CTR. Patent states he has pain over the carpal tunnel and his fingers are still numb. Pain is worse while sleeping. HPI: Hany Camp is a 79-y.o. y/o male, who presents at the request of Nahid Lovelace for evaluation. Mr. camp continues to have paresthesias in his median distribution he has some pain at the incision site. He states that his paresthesias are actually less than prior to surgery and that his incision site pain is getting less. He has noticed some autonomic changes such as decreased turgidity in his finger pulps and was a little worried about this. A long conversation was conducted regarding the pathophysiology of nerve regeneration and and healing. It was discussed that areas of hypo-sensation can actually become more actively paresthetic before they become normal during nerve healing PAST MEDICAL HISTORY: He has a past medical history of Appendix abscess, Asthma , COPD (chronic obstructive pulmonary disease) ([facility]), DVT (deep venous thrombosis) ([facility]), Irregular heart beat, Irregularheartbeat (2019), PVD ( peripheral vascular disease) ([facility]), and Rib fracture. PAST SURGICAL HISTORY: He [...] He reports that he quit smoking about 20 years ago. He smoked 0.00 packs per day. He has never used smokeless tobacco. He reports that he does not drink alcohol or use drugs. FAMILY HISTORY: family history includes Cancer in his mother and sister; Diabetes in his mother; Heart Disease in his brother. ROS: There are no exam notes on file for this visit. I reviewed the above and have made [...] VASCULAR EXAM: Capillary refill is <2 seconds. Thumb palmar abduction is 5 out of 5. Patient has normal sensation in the median distribution. There is slight hardness at the incision site however the wound is fully healed. The patient has normalrange of motion Imaging & Tests: Assessment: ICD-9-CM ICD-10-CM 1. Carpal tunnel syndrome, unspecified laterality 354.0 G56.00 Status post carpal tunnel release. Slowly improving Plan & Discussion: --I will see the patient back in 3 months to assess further changes No x-rays will be necessary Nahid Lovelace MD Hand Surgery 10/11/2019 documented in this encounter Plan of Treatment Date Type Specialty Care Team Description 10/26/2019 Office Visit General Surgery He Rosales MD [address] [address] 01/03/2020 Office Visit Orthopedics Nahid Lovelace MD [address] [place] [address] [phone] Health Maintenance Due Date Last Done Comments DTaP/Tdap/Td Vaccines (1 - Tdap) 1953 DEPRESSION SCREENING 1954 HIV SCREENING 1957 ZOSTER IMMUNIZATION SERIES (1 of 2) 02/07/1992 FALL RISK ASSESSMENT 2007 PNEUMOCOCCAL 65+YRS (1 of 2 - 2007 PCV13) INFLUENZA VACCINE (#1) 2019 HEPATITIS A IMMUNIZATION SERIES Aged Out No longer eligible based on patient's age to complete this topic HPV IMMUNIZATION SERIES Aged Out No longer eligible based on patient's age to complete this topic MENINGOCOCCAL VACCINE IMM Aged Out No longer eligible based on patient's age to complete this topic documented as of this encounter Results Not on filedocumented in this encounter Visit Diagnoses Diagnosis Carpal tunnel syndrome, unspecified laterality documented in this encounter Insurance Payer Benefit Plan Subscriber ID Effective Dates Phone Address Type / Group [place] OPTUM VA OPTUM xxxxxxxxx Effective for Veterans all dates Administration documented as of this encounter
[2019-10-21 13:33] LABS: ABS Basophils 0.1 10^3/ul (0-0.2); ABS Eosinophils 0.2 10^3/ul (0-0.6); ABS Lymphocytes 1.8 10^3/ul (1.0-4.8); ABS Monocytes 0.7 10^3/ul (0-0.8); ABS Neutrophils 3.7 10^3/ul (1.5-7.7); Eosinophil % 2.3 %; Hematocrit 41 % (42-52); Hemoglobin 14.5 g/dL (14.0-18.0); Lymphocyte % 28.5 %; Mean Corpuscular HGB Conc 35 g/dL (31-36); Mean Corpuscular Hemoglobin 34 pg (27-31); Mean Corpuscular Volume 96 fL (80-94); Mean Platelet Volume 6.8 fL (7.4-10.4); Platelet Count 257 10^3/uL (150-450); Red Blood Count 4.31 10^6 /uL (4.18-5.48); Red Cell Distribution Width 13 % (10-15); White Blood Count 6.4 10^3/uL (3.5-10.8)
[2019-10-21 13:42] LABS: Activated Partial Thrombo Time 56.2 seconds (26.0-38.0); INR 2.64 (0.82-1.09)
[2019-10-21 13:49] LABS: Albumin 4.3 g/dL (3.2-5.2); Albumin/Globulin Ratio 1.6 (1-3); BUN/Creatinine Ratio 16.2 (8-20); C Reactive Protein 4.21 mg/L (<8.01); EGFR African American 88.7 (>60); EGFR Non-African American 73.3 (>60); Globulin 2.7 g/dL (2-4); Total Bilirubin 0.8 mg/dL (0.2-1.0)
[2019-10-21 16:22] LABS: Urine Appearance Clear; Urine Bilirubin Negative (Negative); Urine Blood Negative (Negative); Urine Color Yellow; Urine Glucose Negative (Negative); Urine Ketones Negative (Negative); Urine Nitrite Negative (Negative); Urine Protein Negative (Negative); Urine Specific Gravity 1.006 (1.010-1.030); Urine Urobilinogen Negative (Negative)
[2019-10-21] MEDS ORDERED: LORazepam TAB(*) 1 MG PO ONE (16:24)
[2019-10-21 17:22] VITALS: BP 136/90
== END 2019-10-21 17:22 | disposition short-term general hospital (02) ==
LOC: ED 12:40
DX: I71.4 Abdominal aortic aneurysm, without rupture (principal); E03.9 Hypothyroidism, unspecified; I10 Essential (primary) hypertension; J44.9 Chronic obstructive pulmonary disease, unspecified; K21.9 Gastro-esophageal reflux disease without esophagitis; Z86.718 Personal history of other venous thrombosis and embolism; Z79.01 Long term (current) use of anticoagulants; Z88.1 Allergy status to other antibiotic agents; Z88.5 Allergy status to narcotic agent; Z88.2 Allergy status to sulfonamides; Z88.8 Allergy status to other drugs, medicaments and biological substances; Z87.891 Personal history of nicotine dependence
CPT/HCPCS: 36415; 80053; 81003; 83605; 83690; 84484; 85025; 85610; 85730; 86140; 99284; A9270-GY